=== PATIENT | male | born 1970 | race Caucasian/White ===

== ENCOUNTER → 2017-09-27 | Outpatient (CLI) | payer MEDICARE, OTHER ==
[~2017-09-27] MED LIST: IOHEXOL 300 MG/ML 75 ML VIAL. IV ONE
--- NOTE | 2017-09-27 10:35 | RAD ---
Indication: Sialolithiasis. TECHNIQUE: CT neck with 75 mL of Omnipaque 300 with multiplanar reformats. COMPARISON: None FINDINGS: The visualized orbits are within normal limits. Visualized sections through the brain are within normal limits. The nasopharynx, oropharynx and hypopharynx are within normal limits. There is mild dilation of the right submandibular duct with total 3 calcified stones in the distal segment, the largest measuring 1.0 x 0.7 x 0.8 cm in the anterior duct. The right submandibular gland is slightly atrophic. The left submandibular gland, parotid glands and thyroid are within normal limits. No bulky cervical adenopathy. Prevertebral soft tissue within normal limits. The neck vasculature is patent. The visualized lungs are clear. No suspicious bony lesions. Mild multilevel degenerative disc disease in the cervical spine. The visualized paranasal sinuses and mastoid air cells are clear. IMPRESSION: Right-sided submandibular duct stones as described above. Electronically signed by: Hernan Springer DO (09/27/2017 10:32 AM) [id number]
== END | disposition home or self-care (01) ==
LOC: CT 08:41
PROVIDERS: ATTEND Otolaryngology
DX: K11.5 Sialolithiasis (principal); M50.30 Other cervical disc degeneration, unspecified cervical region
CPT/HCPCS: 70491; Q9967

== ENCOUNTER → 2021-04-13 | Day surgery (SDC) | payer MEDICARE, OTHER ==
[~2021-04-13] MED LIST changes: +0.9 % SODIUM CHLORIDE 10 ML VIAL. ONE; +ALBU2.5V8 IH; +CETI10CA PO; +DEXAMETHASONE SOD PHOS 10 MG/ML VIAL. ONE; +FLUT1DIS5 IH; +FLUT9.9S NS; +GABA600T7 PO; +HYDR-2765 PO; +IOHEXOL 300 MG/ML 50 ML VIAL. ONE; -IOHEXOL 300 MG/ML 75 ML VIAL. IV ONE; +LIDOCAINE 1% PF 30 ML VIAL. ONE; +MELO15TA23 PO; +MONT10TA80 PO; +TIOT18CA IH; +TIZA4TAB8 PO
[2021-04-13 11:41] VITALS: BP 123/60
== END | disposition home or self-care (01) ==
LOC: SURG 10:28
PROVIDERS: ATTEND Anesthesiology
DX: M54.12 Radiculopathy, cervical region (principal); M47.816 Spondylosis without myelopathy or radiculopathy, lumbar region; M17.10 Unilateral primary osteoarthritis, unspecified knee; C14.0 Malignant neoplasm of pharynx, unspecified; J45.909 Unspecified asthma, uncomplicated; F32.9 Major depressive disorder, single episode, unspecified; Z79.899 Other long term (current) drug therapy; Z98.890 Other specified postprocedural states; Z91.040 Latex allergy status; Z91.041 Radiographic dye allergy status
CPT/HCPCS: 62321; J1100; Q9967